=== PATIENT | female | born 1985 | race Caucasian/White ===

== ENCOUNTER → 2022-05-20 | Outpatient (CLI) | payer OTHER ==
[~2022-05-20] MED LIST: ADIPEX-P37.5 M1 PO; ALEVE220 M1 PO; ALPRAZOLAM1 MG PO; BUPROPION HCL150 M1 PO; BUTALB-ACETAMI1 EAC1 PO; DOSS PO; GABAPENTIN400 MG PO; HYDROCHLOROTHIA25 MG PO; IBUPROFEN600 MG PO; LORTAB 7.5-3251 EACH PO; NAPROSYN500 MG PO; NEURONTIN 400400 MG PO; PERCOCET 5-3251 EACH PO; PHENERGAN 12.12.5 M1 PO; TRAMADOL HCL50 MG PO; VIT D2 PO; ZOLOFT50 MG PO
== END ==
LOC: KOH-I 13:33
DX: S82.842A Displaced bimalleolar fracture of left lower leg, initial encounter for closed fracture (principal)
CPT/HCPCS: 73610

== ENCOUNTER → 2022-05-21 | Outpatient (CLI) | payer OTHER | LOC: EMI 10:46 | DX: S86.012A Strain of left Achilles tendon, initial encounter (principal); S82.832A Other fracture of upper and lower end of left fibula, initial encounter for closed fracture | CPT/HCPCS: 73721 ==

== ENCOUNTER → 2022-05-22 | Outpatient (CLI) | payer OTHER ==
[~2022-05-22] MED LIST changes: +PREDNISONE10 M1 PO
[2022-05-22 14:30] LABS: HEMOGLOBIN 13.5 gm/dl (12.3-15.3); RED BLOOD COUNT 4.35 M/UL (4.00-5.10)
[2022-05-22 14:54] LABS: BUN/CREATININE RATIO 13 (0-10)
== END ==
LOC: OPSV2 12:30
PROVIDERS: Podiatrist Foot & Ankle Surgery
DX: Z01.812 Encounter for preprocedural laboratory examination (principal); S82.402A Unspecified fracture of shaft of left fibula, initial encounter for closed fracture
CPT/HCPCS: 80048; 85027

== ENCOUNTER → 2022-05-29 | Outpatient (CLI) | payer OTHER | LOC: KOH-I 10:13 | DX: M25.572 Pain in left ankle and joints of left foot (principal); Z96.662 Presence of left artificial ankle joint | CPT/HCPCS: 73610 ==

== ENCOUNTER → 2022-06-12 | Outpatient (CLI) | payer OTHER | LOC: KOH-I 11:51 | DX: M25.572 Pain in left ankle and joints of left foot (principal); Z96.662 Presence of left artificial ankle joint | CPT/HCPCS: 73610 ==

== ENCOUNTER → 2022-06-26 | Outpatient (CLI) | payer OTHER | LOC: KOH-I 10:39 | DX: S82.892D Other fracture of left lower leg, subsequent encounter for closed fracture with routine healing (principal); X58.XXXD Exposure to other specified factors, subsequent encounter | CPT/HCPCS: 73610 ==

== ENCOUNTER → 2022-07-17 | Outpatient (CLI) | payer OTHER | LOC: KOH-I 11:10 | DX: M25.572 Pain in left ankle and joints of left foot (principal); Z96.662 Presence of left artificial ankle joint | CPT/HCPCS: 73610 ==

== ENCOUNTER → 2022-08-07 | Outpatient (CLI) | payer OTHER | LOC: KOH-I 10:12 | DX: S82.892D Other fracture of left lower leg, subsequent encounter for closed fracture with routine healing (principal) | CPT/HCPCS: 73610 ==